=== PATIENT | female | born 1950 | race Hispanic/Latino ===

== ENCOUNTER 2019-06-13 14:42 | Emergency (ER) | payer MEDICARE ==
[~2019-06-13] VITALS: Ht 157.5 cm; Wt 104.1 kg
--- OUTSIDE RECORDS SUMMARY | 2019-06-13 14:44 | XMS REPORT | Continuity of Care Document ---
Author Author [facility] Address Unknown Phone Unavailable Care Team Providers Care Road Mixer Operator Name Role Phone [facility] Information [facility] Unavailable Unavailable Problems Problem Status Onset Date Classification Date Reported Comments Source De Quervain's tenosynovitis Active Problem 01/11/2018 [place] El Back pain Active Problem 01/11/2018 G[place] El Medications Medication Details Route Status Patient Instructions Ordering Provider Order Date Source Vitamin D 1 tablet Orally Active Orally Once a day Deborah [place]ordo El Allergies, Adverse Reactions, Alerts Substance Category Reaction Severity Reaction type Status Date Reported Comments Source N.K.D.A. Adverse Reaction Info Not Available Adverse Reaction Active 01/03/2018 Gordo El Immunizations No Data Provided for This Section Results No Data Provided for This Section Pathology Reports No Data Provided for This Section Diagnostic Reports No Data Provided for This Section Consultation Notes No Data Provided for This Section Discharge Summaries No Data Provided for This Section History and Physicals No Data Provided for This Section Vital Signs Vital Sign Value Date Comments Source Weight 241 01/03/2018 [place] El Height 62 01/03/2018 [place] El Temperature Oral (F) 97.4 F 01/03/2018 [place] El Heart Rate 72 01/03/2018 [place] El Diastolic (mm Hg) 80 01/03/2018 [place] El Systolic (mm Hg) 118 01/03/2018 Gordo Rojaser Encounters No Data Provided for This Section Procedures No Data Provided for This Section Assessment and Plan No Data Provided for This Section Plan of Care No Data Provided for This Section Social History No Data Provided for This Section Family History No Data Provided for This Section Advance Directives No Data Provided for This Section Functional Status No Data Provided for This Section
--- OUTSIDE RECORDS SUMMARY | 2019-06-13 14:44 | XMS REPORT ---
Author Author Santy El Organization [employer] Address Unknown Phone Unavailable Care Team Providers Care Electronic Warfare Specialist Name Role Phone Santy El CP Unavailable Allergies No Known Allergies Problems Problem Type Condition Code Onset Dates Condition Status Problem De Quervain's tenosynovitis M65.4 Active Problem Back pain M54.9 Active Medications No Known Medications Results No Known Results Summary Purpose [employer] Submission
--- OUTSIDE RECORDS SUMMARY | 2019-06-13 14:44 | XMS REPORT ---
Author Author Malick Cabrera [facility] [employer] Address Unknown Phone Unavailable Care Team Providers Care Core Cutter And Reamer Name Role Phone Malick Cabrera Unavailable Allergies, Adverse Reactions, Alerts Substance Reaction Event Type N.K.D.A. Info Not Available Non Drug Allergy Problems Problem Type Condition Code Onset Dates Condition Status Problem De Quervain's tenosynovitis M65.4 Active Assessment De Quervain's tenosynovitis M65.4 Active Problem Back pain M54.9 Active Assessment Back pain M54.9 Active Medications Medication Code System Code Instructions Start Date End Date Status Dosage Vitamin D [facility] [id number] Orally Once a day Active 1 tablet Vital Signs Date/Time: January 03, 2018 BMI 44.07 Index Weight 241 lbs Height 62 in Temperature 97.4 F Cardiac Monitoring Heart Rate 72 /min Blood Pressure Diastolic 80 mm Hg Blood Pressure Systolic 118 mm Hg Results No Known Results Summary Purpose [employer] Submission
--- OUTSIDE RECORDS SUMMARY | 2019-06-13 14:44 | XMS REPORT ---
Author Author Santy El Organization [employer] Address Unknown Phone Unavailable Care Team Providers Care Management Scientist Name Role Phone Santy El CP Unavailable Allergies No Known Allergies Problems Problem Type Condition Code Onset Dates Condition Status Problem De Quervain's tenosynovitis M65.4 Active Problem Back pain M54.9 Active Medications No Known Medications Results No Known Results Summary Purpose [employer] Submission
[2019-06-13] MEDS ORDERED: TRAMADOL HCL 50 MG TAB ONE (16:41)
--- NOTE | 2019-06-13 16:55 | Diagnostic Imaging Report ---
Exam: Right Knee Series. History: Status post fall 3 days ago, right knee pain Comparison: None. Findings: 3 views of the right knee. There is decreased bone mineralization. Negative for acute, displaced fracture or dislocation. Minimal tricompartmental degenerative changes . No abnormal soft tissue calcification or mass. No significant suprapatellar effusion. Impression: 1. No acute abnormalities. Signed by: Dr. Chris Jiang M.D. on 06/13/2019 4:52 PM
--- NOTE | 2019-06-13 17:15 | Diagnostic Imaging Report ---
Exam: Left knee, 3 views History: Status post fall Comparison: None. Findings: There is mildly decreased bone mineralization. No acute, displaced fracture or dislocation. Joint spaces relatively well. Mild vascular calcifications. No soft tissue swelling. No significant suprapatellar effusion. Impression: 1. Mildly decreased bone mineralization, which limits evaluation of the bony structures. No acute, displaced fracture or dislocation, within the limitations of the study. Signed by: Dr. Chris Jiang M.D. on 06/13/2019 5:12 PM
[2019-06-13] MEDS ORDERED: TRAMADOL HCL 50 MG TAB PO ONE (19:00)
--- NOTE | 2019-06-13 19:10 | NUR ---
Report to QI Ng
--- NOTE | 2019-06-13 19:39 | Diagnostic Imaging Report ---
EXAM: CT Abdomen and Pelvis WITHOUT contrast INDICATION: Vomiting, vein after eating COMPARISON: None. TECHNIQUE: Abdomen and pelvis were scanned utilizing a multidetector helical scanner from the lung base to the pubic symphysis without administration of IV contrast. Absence of intravenous contrast decreases sensitivity for detection of focal lesions and vascular pathology. Coronal and sagittal reformations were obtained. Routine protocol was performed. IV CONTRAST: None. ORAL CONTRAST: Water RADIATION DOSE: Total DLP: 726 mGy*cm Estimated effective dose: (DLP x 0.015 x size factor) mSv COMPLICATIONS: None FINDINGS: LINES and TUBES: None. LOWER THORAX: Unremarkable HEPATOBILIARY: No focal hepatic lesions. No biliary ductal dilation. GALLBLADDER: No radio-opaque stones or sludge. No wall thickening. SPLEEN: No splenomegaly. PANCREAS: No focal masses or ductal dilatation. ADRENALS: No adrenal nodules KIDNEYS/URETERS: No hydronephrosis. No cystic or solid mass lesions. A 4 mm nonobstructing calcified stone is seen in the inferior pole of the left kidney on series 2, image 37. No additional calcified stones in the remaining collecting system. GI TRACT: No abnormal distention, wall thickening, or evidence of bowel obstruction. Appendix is normal. PELVIC ORGANS/BLADDER: Unremarkable. LYMPH NODES: No lymphadenopathy. VESSELS: Unremarkable. PERITONEUM / RETROPERITONEUM: No free air or fluid. BONES: Unremarkable. SOFT TISSUES: Unremarkable. IMPRESSION: 1. Nonobstructing 4 mm left renal stone. 2. Otherwise, no abnormalities in the abdomen or pelvis. Signed by: Dr. Katelyn Siddiqi M.D. on 06/13/2019 7:35 PM
[2019-06-13 20:17] VITALS: BP 168/79
== END 2019-06-13 20:41 | disposition home or self-care (01) ==
LOC: FSED 14:42
DX: M25.562 Pain in left knee (principal); R26.2 Difficulty in walking, not elsewhere classified; M79.672 Pain in left foot; M79.671 Pain in right foot; N20.0 Calculus of kidney; N30.91 Cystitis, unspecified with hematuria
CPT/HCPCS: 74176; 80053; 81003; 84484; 99284

== ENCOUNTER → 2024-09-03 | Day surgery (SDC) | payer MEDICARE ==
[2024-09-01 08:57] LABS: BASOPHILS # (AUTO) 0.1 (0.0-0.1); BASOPHILS % 1.6 % (0.0-1.0); EOSINOPHILS # (AUTO) 0.1 (0.0-0.4); EOSINOPHILS % 1.6 % (0.0-6.0); HEMOGLOBIN 13.7 g/dL (12.0-16.0); LYMPHOCYTES # (AUTO) 2.9 (1.0-3.2); LYMPHOCYTES % 41.2 % (18.0-39.1); MEAN CORPUSCULAR HEMOGLOBIN 31.2 pg (28-32); MEAN CORPUSCULAR HGB CONC 31.1 g/dL (31-35); MEAN CORPUSCULAR VOLUME 100.2 fL (81-99); MONOCYTES # (AUTO) 0.8 (0.2-0.8); MONOCYTES % 10.8 % (4.4-11.3); NEUTROPHILS # (AUTO) 3.1 (2.1-6.9); NEUTROPHILS % 44.5 % (38.7-80.0); PLATELET COUNT 157 x10e3/uL (140-360); RED BLOOD COUNT 4.39 x10e6/uL (3.6-5.1); RED CELL DISTRIBUTION WIDTH 13.2 % (11.7-14.4); WHITE BLOOD COUNT 6.92 x10e3/uL (4.8-10.8)
[2024-09-01 09:16] LABS: CALCIUM 9.5 mg/dL (8.4-10.2); CREATININE, SERUM 0.72 mg/dL (0.57-1.11); URIC ACID 4.4 mg/dL (2.6-8.0)
[~2024-09-03] MED LIST: ACETAMINOPHEN 1000 MG/100 ML 100 ML IV ONE; ASPIRIN81 MG PO; Ampicillin/Sulbactam 3 GM Vial ONE; CEFUROXIME250 MG PO; DEXAMETHASONE SOD PHOS INJ 4 MG/ML SDV ONE; FAMOTIDINE 20 MG/2 ML VIAL IV ONE; FENTANYL CITRATE/PF 100MCG/2 ML INJ ONE; LIDOCAINE HCL 2% LOCAL INJ 5 ML SDV VIAL INJ ONE; LIPITOR20 MG PO; LOSARTAN POTASS25 MG PO; MEPERIDINE HCL INJ 25 MG/ML VIAL ONE; ONDANSETRON HCL INJ 2MG/ML 2ML 2 MG/ML VIAL ONE; PROPOFOL IV EMULSION 10 MG/ML 20 ML VIAL ONE; SODIUM CHLORIDE 0.9% INJ 100 ML BAG ONE; VESICARE5 MG PO; VITAMIN D31250 MCG
[2024-09-03] MEDS: GENTAMICIN 80MG/NS 100 ML 200 ML IV ONE (12:09)
[2024-09-03] MEDS: LACTATED RINGER'S 1,000 ML ONE (12:09)
[2024-09-03] MEDS: PHENAZOPYRIDINE HCL 100 MG TAB ONE (15:10)
[2024-09-03] MEDS: MEPERIDINE HCL INJ 25 MG/ML VIAL IV ONE (15:25)
[2024-09-03 15:40] VITALS: BP 170/88; PULSE 72; RESP 18; O2SAT 95
== END | disposition home or self-care (01) ==
LOC: OR 11:27
PROVIDERS: ATTEND Urology
DX: N20.1 Calculus of ureter (principal); N20.0 Calculus of kidney; Z46.6 Encounter for fitting and adjustment of urinary device; N81.10 Cystocele, unspecified; N81.6 Rectocele; N36.41 Hypermobility of urethra; N95.2 Postmenopausal atrophic vaginitis; K74.60 Unspecified cirrhosis of liver; G40.909 Epilepsy, unspecified, not intractable, without status epilepticus; E78.5 Hyperlipidemia, unspecified; M06.9 Rheumatoid arthritis, unspecified; M19.90 Unspecified osteoarthritis, unspecified site; Z01.810 Encounter for preprocedural cardiovascular examination; Z01.812 Encounter for preprocedural laboratory examination; Z01.818 Encounter for other preprocedural examination; Z79.82 Long term (current) use of aspirin; Z79.899 Other long term (current) drug therapy; Z86.19 Personal history of other infectious and parasitic diseases
CPT/HCPCS: 36415; 52352; 71046; 74018; 74420; 80048; 84550; 85025; 87086; 88300; 93005; C1766; C1769; J0131; J0295; J1100; J1580; J2003; J2175; J2405; J2704; J3010; J7050; J7121